=== PATIENT | female | born 1960 | race Caucasian/White ===

== ENCOUNTER 2018-10-29 19:44 | Emergency (ER) | payer OTHER ==
[2018-10-29] MEDS ORDERED: FENTANYL CITRATE INJ/PF 100 MCG/2 ML AMPUL IV ONE (20:20)
[2018-10-29] MEDS ORDERED: ONDANSETRON HCL INJ/PF 4 MG/2 ML SDV IV ONE (20:20)
[2018-10-29 20:33] LABS: ABSOLUTE EOSINOPHILS # (AUTO) 0.2 10^3/uL (0.0-0.6); ABSOLUTE LYMPHOCYTES (AUTO) 2.7 10^3/uL (0.5-4.7); ABSOLUTE MONOCYTES (AUTO) 0.8 10^3/uL (0.1-1.4); ABSOLUTE NEUT (AUTO) 3.5 10^3/uL (1.7-8.2); BASOPHILS % (AUTO) 0.2 % (0-2); EOSINOPHILS % (AUTO) 2.3 % (0-6); HEMATOCRIT 41.8 % (36.0-47.0); HEMOGLOBIN 13.8 g/dL (12.0-15.5); LYMPHOCYTES % (AUTO) 37.4 % (13-45); MEAN CORPUSCULAR HEMOGLOBIN 26.1 pg (27.0-33.4); MEAN CORPUSCULAR VOLUME 79 fl (80-97); PLATELET COUNT 185 10^3/uL (150-450); RED BLOOD COUNT 5.28 10^6/uL (3.72-5.28); RED CELL DISTRIBUTION WIDTH 13.7 % (11.5-14.0); SEGMENTED NEUTROPHILS % (AUTO) 49.1 % (42-78); TOTAL CELLS COUNTED % (AUTO) 100 %; WHITE BLOOD COUNT 7.2 10^3/uL (4.0-10.5)
[2018-10-29 20:57] LABS: ALANINE AMINOTRANSFERASE 24 U/L (9-52); ALBUMIN 3.8 g/dL (3.5-5.0); ALKALINE PHOSPHATASE 128 U/L (38-126); ANION GAP 10 (5-19); ASPARTATE AMINO TRANSFERASE 18 U/L (14-36); BILIRUBIN,DIRECT 0.2 mg/dL (0.0-0.4); BILIRUBIN,TOTAL 0.4 mg/dL (0.2-1.3); BLOOD UREA NITROGEN 18 mg/dL (7-20); CALCIUM 9.4 mg/dL (8.4-10.2); CARBON DIOXIDE 30 mmol/L (22-30); CHLORIDE 102 mmol/L (98-107); GLUCOSE 122 mg/dL (75-110); POTASSIUM 3.4 mmol/L (3.6-5.0); SODIUM 142.2 mmol/L (137-145); TOTAL PROTEIN 6.4 g/dL (6.3-8.2)
[2018-10-29] MEDS ORDERED: LIDOCAINE 5% (700 MG) TRANSDERMAL ADH..PATCH TP ONE (21:01)
--- NOTE | 2018-10-29 21:03 | ER Document Report ---
ED General - General Chief Complaint: Shortness Of Breath Stated Complaint: COUGH Time Seen by Provider: 10/29/18 20:05 Primary Care Provider: HOLLIE ENRIQUEZ FNP-C [Primary Care Provider] - Follow up as needed Notes: Patient is a 57-year-old female that presents to the emergency department for chief complaint of cough and shortness of breath and back pain. Patient states that she is been treated for pneumonia, and recently just finished antibiotics, but she has been coughing still, she states she was coughing so hard earlier today that she felt a sensation in her right back, she described as a sharp stabbing pain, that is now constant she currently rates the pain as a 6 out of 10 and is uncomfortable to lie on that side as well. She thought it felt like when she had a pneumothorax in the past. She states is painful to breathe as well. She has been coughing up some phlegm, that was yellow in color. She denies any recent fever, nausea, vomiting, abdominal pain, dysuria hematuria. No other complaints at this time. Past Medical History: Hypertension Past Surgical History: Mammoplasty, appendectomy Social History: Denies tobacco, alcohol or drug use. Family History: Reviewed and noncontributory for presenting illness Allergies: Reviewed, see documented allergy list. REVIEW OF SYSTEMS: Other than noted above, the 12 point review of systems was reviewed with the patient and were negative, all pertinent findings are included in the HPI. PHYSICAL EXAMINATION: Vital signs reviewed, nursing noted reviewed. GENERAL: Patient appears uncomfortable on exam, but in no immediate distress HEAD: Atraumatic, normocephalic. EYES: Eyes appear normal, extraocular movements intact, sclera anicteric, conjunctiva are normal. ENT: nares patent, oropharynx clear without exudates. Moist mucous membranes. NECK: Normal range of motion, supple without lymphadenopathy LUNGS: Breath sounds clear to auscultation bilaterally and equal. No wheezes rales or rhonchi. HEART: Regular rate and rhythm without murmurs Back: Reproducible rib tenderness along the posterior lateral aspect of the right ribs, and between the ribs, around ribs 8 through 10, no midline tenderness to the thoracic or lumbar spine. ABDOMEN: Soft, obese, nontender, normoactive bowel sounds. No rebound, guarding, or rigidity. No masses appreciated. EXTREMITIES: Nontender, good range of motion, no pitting or edema. NEUROLOGICAL: No focal neurological deficits. Moves all extremities spontaneously Motor and sensory grossly intact on exam. PSYCH: Normal mood, normal affect. SKIN: Warm, Dry, normal turgor, no rashes or lesions noted on exposed skin TRAVEL OUTSIDE OF THE [place] IN LAST 30 DAYS: No - Related Data Allergies/Adverse Reactions: latex [Latex] Allergy (Unknown, Verified 06/19/13 09:49) Past Medical History - Social History Smoking Status: Never Smoker Family History: Hypertension - Past Medical History Cardiac Medical History: Reports: Hx Hypertension Pulmonary Medical History: Reports: Hx Bronchitis - With reactive airways disease Denies: Hx Tuberculosis Neurological Medical History: Reports: Hx Seizures - as a child, last seizure was at age [age] years old GI Medical History: Reports: Hx Gastroesophageal Reflux Disease Past Surgical History: Reports: Hx Appendectomy, Hx Breast Surgery - BREAST REDUCTION, Hx Tonsillectomy. Denies: Hx Pacemaker - Immunizations Hx Diphtheria, Pertussis, Tetanus Vaccination: Yes Hx Pneumococcal Vaccination: 06/08/12 Physical Exam - Vital signs Vitals: Pulse Ox 100 10/29/18 20:08 Course - Re-evaluation Re-evalutation: Patient seen and examined vital signs reviewed. Laboratory data and/or imaging were ordered as appropriate for the patient's presenting symptoms and complaint, with consideration of any critical or life threatening conditions that may be associated with their obtained history and exam as noted above. Patient was treated with IV fentanyl, and Zofran, and was placed on the Lidoderm patch Results were reviewed when available and demonstrated negative chest x-ray, patient's lungs are clear my exam as well, very low suspicion for pneumothorax, her pulse ox was normal as well, suspect musculoskeletal strain from excessive coughing, blood work was unremarkable, negative troponin, negative EKG for concerning signs for ischemia. The patient was re-evaluated and was stable and improved Evaluation was most consistent with cough, musculoskeletal pain Results were discussed with the patient at this point, after careful consideration I feel that that patient can be discharged from the emergency department, the patient was educated treatments and reasons to return to the emergency department based on their presumed diagnosis as noted above, they were advised to followup with a primary care physician in 2-3 days. Patient was agreeable to plan of care. *Note is created using voice recognition software and may contain spelling, syntax or grammatical errors. Laboratory 10/29/18 10/29/18 10/29/18 20:15 20:15 20:15 WBC 7.2 RBC 5.28 Hgb 13.8 Hct 41.8 MCV 79 L MCH 26.1 L MCHC 33.0 RDW 13.7 Plt Count 185 Seg Neutrophils % 49.1 Lymphocytes % 37.4 Monocytes % 11.0 Eosinophils % 2.3 Basophils % 0.2 Absolute Neutrophils 3.5 Absolute Lymphocytes 2.7 Absolute Monocytes 0.8 Absolute Eosinophils 0.2 Absolute Basophils 0.0 Sodium 142.2 Potassium 3.4 L Chloride 102 Carbon Dioxide 30 Anion Gap 10 BUN 18 Creatinine 0.92 Est GFR ( Amer) > 60 Est GFR (Non-Af Amer) > 60 Glucose 122 H Calcium 9.4 Total Bilirubin 0.4 Direct Bilirubin 0.2 Neonat Total Bilirubin Not Reportable Neonat Direct Bilirubin Not Reportable Neonat Indirect Bili Not Reportable AST 18 ALT 24 Alkaline Phosphatase 128 H Troponin I < 0.012 Total Protein 6.4 Albumin 3.8 Chest X-Ray 10/29/18 00:00 IMPRESSION: 1. No acute pulmonary infiltrates 2. Slightly prominent right hilum, suggesting adenopathy. - Vital Signs Vital signs: Temp Pulse Resp BP Pulse Ox 99.7 F 18 166/74 H 93 10/29/18 20:57 10/29/18 21:02 10/29/18 21:02 10/29/18 21:02 - Laboratory Result Diagrams: 10/29/18 20:15 10/29/18 20:15 Laboratory results interpreted by me: 10/29/18 10/29/18 20:15 20:15 MCV 79 L MCH 26.1 L Potassium 3.4 L Glucose 122 H Alkaline Phosphatase 128 H - EKG Interpretation by Me Additional EKG results interpreted by me: EKG demonstrates sinus rhythm with a ventricular rate of 72 bpm, normal axis, QTC 473 ms, no evidence of acute ischemia in this EKG, this is compared with a prior EKG from 08/24/2012, without significant change. Discharge - Discharge Clinical Impression: Cough, Rib pain on right side Condition: Stable Disposition: HOME, SELF-CARE Instructions: Muscle Strain ([facility]) Additional Instructions: Please take the prescribed anti-inflammatory medication, this can be taken if you are driving, and is safe, additionally if you are not previously prescribed Mucinex, you can take that twice daily to help thin out the secretions that you have been coughing up. Lidoderm patches have been provided as well as a prescription, these are left on for 12 hours and then remove for 12 hours. Please follow-up with your primary care physician otherwise. Prescriptions: Guaifenesin [Mucinex] 1,200 mg PO BID #20 tab.er.12h Lidocaine [Lidoderm 5% (700 mg) Transdermal Patch] 1 patch TP DAILY #5 adh..patch Naproxen [Naprosyn] 500 mg PO BID PRN #30 tablet PRN Reason: back pain Referrals: HOLLIE ENRIQUEZ, CORPORATE SCHEDULER-C [Primary Care Provider] - Follow up in 3-5 days
--- NOTE | 2018-10-29 21:11 | RADIOLOGY REPORT (SQ) ---
EXAM DESCRIPTION: [facility]: XR CHEST 1 VIEW CLINICAL HISTORY: 57 years Female, SOB COMPARISON: 08/24/2012 FINDINGS: Lungs are clear, with no focal infiltrate, pneumothorax, or pleural effusion. Heart size is normal for positioning. Right hilum is slightly prominent, suggesting adenopathy. Bony structures are unremarkable. IMPRESSION: 1. No acute pulmonary infiltrates 2. Slightly prominent right hilum, suggesting adenopathy.
[2018-10-29] MEDS ORDERED: POTASSIUM CHLORIDE 10 MEQ CAPSULE.ER PO ONE (21:27)
[2018-10-29] MEDS ORDERED: KETOROLAC TROMETHAMINE INJ/PF 30 MG/1 ML SDV IV ONE (21:35)
[2018-10-29 22:06] VITALS: BP 180/90
--- NOTE | 2018-10-30 19:27 | EKG REPORT ---
SEVERITY:- NORMAL ECG - SINUS RHYTHM : Confirmed by: Rosemary Ivory MD 30-Oct-2018 19:26:33
== END 2018-10-29 22:27 | disposition home or self-care (01) ==
LOC: ER 19:44
DX: R07.81 Pleurodynia (principal); R05 Cough; M54.9 Dorsalgia, unspecified; R06.02 Shortness of breath; I10 Essential (primary) hypertension
CPT/HCPCS: 93005; 99284; 96374; 96375; 36415; 85025; 80053; 84484; 71045; 93010; J3010; J1885; J2405

== ENCOUNTER 2019-02-02 08:33 | Emergency (ER) | payer OTHER ==
[2019-02-02] MEDS ORDERED: AZITHROMYCIN 250 MG TABLET PO ONE (09:23)
[2019-02-02] MEDS ORDERED: BENZONATATE 100 MG CAPSULE PO ONE (09:23)
[2019-02-02 10:01] VITALS: BP 200/105
--- NOTE | 2019-02-02 15:10 | ER Document Report ---
Entered by EMMANUEL PLASENCIA SCRIBE 02/02/19 0923 Acting as scribe for:EVANGELINA SILVA MD ED Respiratory Problem - General Chief Complaint: Breathing Difficulty Stated Complaint: COUGH Time Seen by Provider: 02/02/19 08:58 Primary Care Provider: HOLLIE ENRIQUEZ FNP-C [Primary Care Provider] - Follow up as needed Mode of Arrival: Ambulatory Information source: Patient Notes: Patient is a 58-year-old female that presents to the emergency department today with complaints of shortness of breath, cough, and right lateral rib pain for the last week and a half. Patient states her "ribs hurt in the same spot they always do when she gets a cough". Patient states her sputum was clear but transitioned to a yellow color yesterday. TRAVEL OUTSIDE OF THE [place] IN LAST 30 DAYS: No - Related Data Allergies/Adverse Reactions: latex [Latex] Allergy (Unknown, Verified 02/02/19 08:34) Past Medical History - General Information source: Patient - Social History Smoking Status: Never Smoker Cigarette use (# per day): No Frequency of alcohol use: None Drug Abuse: None Family History: Hypertension Patient has suicidal ideation: No Patient has homicidal ideation: No - Past Medical History Cardiac Medical History: Reports: Hx Hypertension Pulmonary Medical History: Reports: Hx Bronchitis - With reactive airways disease Neurological Medical History: Reports: Hx Seizures - as a child, last seizure was at age [age] years old GI Medical History: Reports: Hx Gastroesophageal Reflux Disease Past Surgical History: Reports: Hx Appendectomy, Hx Breast Surgery - BREAST REDUCTION, Hx Tonsillectomy - Immunizations Hx Diphtheria, Pertussis, Tetanus Vaccination: Yes Hx Pneumococcal Vaccination: 06/08/12 Review of Systems - Review of Systems Constitutional: No symptoms reported EENT: No symptoms reported Cardiovascular: See HPI, Other - right lateral chest wall pain Respiratory: See HPI, Cough, Short of breath Gastrointestinal: No symptoms reported Genitourinary: No symptoms reported Female Genitourinary: No symptoms reported Musculoskeletal: No symptoms reported Skin: No symptoms reported Hematologic/Lymphatic: No symptoms reported Neurological/Psychological: No symptoms reported -: Yes All other systems reviewed and negative Physical Exam - Vital signs Vitals: Temp Pulse Resp BP Pulse Ox 97.6 F 67 24 H 224/94 H 93 02/02/19 08:40 02/02/19 08:40 02/02/19 08:40 02/02/19 08:40 02/02/19 08:40 - Notes Notes: Physical Exam: General: Alert, morbidly obese. HEENT: Normocephalic. Atraumatic. PERRL. Extraocular movements intact. Oropharynx clear. No posterior oropharynx erythema or exudate. Neck: Supple. Non-tender. Respiratory: No respiratory distress. Coarse breath sounds bilaterally with forced bronchitic cough. Right lateral chest wall tenderness with palpation. Cardiovascular: Regular rate and rhythm. Abdominal: Normal Inspection. Non-tender. No distension. Normal Bowel Sounds. Back: No gross abnormalities. Extremities: Moves all four extremities. Upper extremities: Normal inspection. Normal ROM. Lower extremities: Normal inspection. No edema. Normal ROM. Neurological: Normal cognition. AAOx4. Normal speech. Psychological: Normal affect. Normal Mood. Skin: Warm. Dry. Normal color. Course - Vital Signs Vital signs: Temp Pulse Resp BP Pulse Ox 97.6 F 66 18 200/105 H 95 02/02/19 08:40 02/02/19 10:00 02/02/19 10:00 02/02/19 10:00 02/02/19 10:00 Discharge - Discharge Clinical Impression: Bronchitis High blood pressure Qualifiers: Hypertension type: essential hypertension Qualified Code(s): I10 - Essential (primary) hypertension Condition: Stable Disposition: HOME, SELF-CARE Additional Instructions: Bronchitis You have acute bronchitis. This disease is an infection or inflammation of the air passageways in your lungs. Symptoms usually include cough, low grade fever, shortness of breath, and wheezing. The cough usually persists for a couple of weeks. Most cases of bronchitis get better without antibiotics. We prescribe antibiotics when we believe bacteria are damaging your airways, or if there's high risk the bronchitis will worsen into pneumonia. Increase your fluid intake. A cool mist humidifier may make your lungs more comfortable. An expectorant (cough medicine that loosens phlegm) can help. If you smoke, STOP!!! Recovery from bronchitis can be somewhat slow, but you should see improvement within a day or two. Repeated episodes of bronchitis may result in lung damage -- for example, chronic bronchitis, recurrent pneumonias, or emphysema. Call the doctor if you develop increasing fever, shortness of breath, chest pain, bloody sputum, or otherwise worsen. If you have not improved at all after several days, contact the physician. Your blood pressure was elevated today. Be sure you do not miss any of your pressure medications. Take the medication as prescribed--start the Zithromax tomorrow, you had today's dose here in the emergency room. Take Delsym DM or the generic version for additional cough control. Take Tylenol and ibuprofen or Aleve for your rib pain. Drink plenty of fluids and get plenty of rest. Follow-up with a local primary care provider if not improving, or if your blood pressure continues to run high. RETURN TO THE EMERGENCY ROOM IF ANY NEW OR WORSENING SYMPTOMS. Prescriptions: Benzonatate [Tessalon Perles 100 mg Capsule] 100 mg PO ASDIR PRN #30 capsule PRN Reason: Azithromycin [Zithromax 250 mg Tablet] 250 mg PO DAILY #4 tablet Referrals: HOLLIE ENRIQUEZ FNP-C [Primary Care Provider] - Follow up as needed Scribe Attestation: 02/02/19 09:28 I personally performed the services described in the documentation, reviewed and edited the documentation which was dictated to the scribe in my presence, and it accurately records my words and actions. I personally performed the services described in the documentation, reviewed and edited the documentation which was dictated to the scribe in my presence, and it accurately records my words and actions.
== END 2019-02-02 10:01 | disposition home or self-care (01) ==
LOC: ER 08:33
DX: J40 Bronchitis, not specified as acute or chronic (principal); I10 Essential (primary) hypertension; R07.89 Other chest pain; Z91.040 Latex allergy status
CPT/HCPCS: 99284

== ENCOUNTER → 2019-02-18 | Outpatient (CLI) | payer OTHER ==
--- NOTE | 2019-02-18 18:00 | XCELERA REPORT ---
[address] [address] Transthoracic Echocardiogram Report Name: PARKER IZAGUIRRE Age: 58 yrs Gender: Female : 1960 Patient Status: Outpatient Patient Location: RAD Study Date: 02/18/2019 08:10 AM Height: 61 in Weight: 267 lb BSA: 2.1 m2 Reason For Study: DYSPENA Ordering Physician: DANIKA KNOX Performed By: Candis Tyler Interpretation Summary Very poor study , difficult due to pt 267# and 61". No good apical views for biplane LVEF calculation, and insufficient endocardial definition of apical view s to assess regional wall motion abnormality. No IVC, and no RA/RV dimensions measured. Pt's dyspnea likely at least due to mod/severe pulm hypertension RVSP > 67mm Hg. with visual RA and RV enlargement. LVEF visually normal >65%, although no Biplane LVEF calculated. due to no decent apical views and no contrast used. AV peak velocity is min elevated 1.9m/sec. may be mild , but no AR. MMode/2D Measurements & Calculations IVSd: 1.0 cm LVIDd: 4.6 cm FS: 45.6 % Ao root diam: 2.9 cm LVIDs: 2.5 cm EDV(Teich): 96.2 ml LVPWd: 1.1 cm ESV(Teich): 22.1 ml Ao root area: 6.7 cm2 LA dimension: 4.2 cm EF(Teich): 77.1 % Doppler Measurements & Calculations MV E max ladan: MV P1/2t max ladan: Ao V2 max: LV V1 max P.3 cm/sec 98.1 cm/sec 188.9 cm/sec 3.7 mmHg MV A max ladan: MV P1/2t: 53.9 msec Ao max PG: LV V1 max: 69.7 cm/sec MVA(P1/2t): 4.1 cm2 14.3 mmHg 96.0 cm/sec MV E/A: 1.4 MV dec slope: 532.7 cm/sec2 MV dec time: 0.18 sec TV V2 max: PA V2 max: MV P1/2t-pr_phl: 382.8 cm/sec 124.0 cm/sec 53.9 msec TV max PG: PA max P.2 mmHg 58.6 mmHg Left Ventricle The left ventricle is normal in size. There is mild concentric left ventricular hypertrophy. The left ventricular ejection fraction is within normal limits. LV diastolic function not assessed. Not all wall segments were well visualized. see the pictorals for individual segments visualised and assessed. Right Ventricle The right ventricle is mildly dilated. The right ventricular systolic function is normal. Atria The right atrium is dilated. The left atrial size is normal. Interarterial septum not well visualized and not well dopplered. Cannot comment on ASD/PFO presence. Mitral Valve There is mild mitral annular calcification. There is no evidence of mitral valve prolapse. There is no mitral valve stenosis. There is no mitral regurgitation noted. Aortic Valve The aortic valve is not well visualized secondary to technical limitations. The aortic valve is trileaflet. The aortic valve opens well. The aortic valve is sclerotic and shows some degree of functional abnormality. Cannot exclude aortic valvular vegetation. There is a peak gradient of 14 mm of Hg. No aortic regurgitation is present. Tricuspid Valve The tricuspid valve is not well visualized secondary to technical limitations. There is a mild amount of tricuspid regurgitation. Best estimated RVSP is approximately 67 mm/Hg. Pulmonic Valve The pulmonic valve is not well visualized. Great Vessels The inferior vena cava was not visualized. Effusions Minimal pericardial effusion. I WMSI = 1.00 % Normal = 100 Segments Size X - Cannot 2 - 4 - 1-2 small Interpret 1 - Normal Hypokinetic 3 - AkineticDyskinetic 3-5 moderate 5 - 6-14 large Aneurysmal 15-16 diffuse : DANIKA KNOX, [place]
== END ==
LOC: RAD 07:57
PROVIDERS: ATTEND Physician Assistant
DX: R06.09 Other forms of dyspnea (principal)
CPT/HCPCS: 93306

== ENCOUNTER → 2019-05-04 | Outpatient (CLI) | payer OTHER ==
[2019-05-04 09:21] LABS: HEMATOCRIT 43.3 % (36.0-47.0); HEMOGLOBIN 14.5 g/dL (12.0-15.5); MEAN CORPUSCULAR HEMOGLOBIN 26.9 pg (27.0-33.4); MEAN CORPUSCULAR HGB CONC 33.5 g/dL (32.0-36.0); MEAN CORPUSCULAR VOLUME 80 fl (80-97); PLATELET COUNT 166 10^3/uL (150-450); RED BLOOD COUNT 5.39 10^6/uL (3.72-5.28); WHITE BLOOD COUNT 6.4 10^3/uL (4.0-10.5)
[2019-05-04 10:06] LABS: ALBUMIN 3.7 g/dL (3.5-5.0); ALKALINE PHOSPHATASE 128 U/L (38-126); ANION GAP 7 (5-19); ASPARTATE AMINO TRANSFERASE 18 U/L (14-36); BILIRUBIN,DIRECT 0.2 mg/dL (0.0-0.4); BILIRUBIN,TOTAL 0.8 mg/dL (0.2-1.3); BLOOD UREA NITROGEN 18 mg/dL (7-20); CALCIUM 9.4 mg/dL (8.4-10.2); CARBON DIOXIDE 31 mmol/L (22-30); CHLORIDE 104 mmol/L (98-107); CHOLESTEROL 173.21 mg/dL (0-200); GLUCOSE 103 mg/dL (75-110); POTASSIUM 3.8 mmol/L (3.6-5.0); TOTAL PROTEIN 6.5 g/dL (6.3-8.2); TRIGLYCERIDES 88 mg/dL (<150)
[2019-05-04 10:16] LABS: DIRECT LDL 108 mg/dL (<100)
[2019-05-05 14:37] LABS: THYROID PEROXIDASE (TPO) AB 323 IU/mL (0-34)
[2019-05-05 15:42] LABS: THYROGLOBULIN AB <1.0 IU/mL (0.0-0.9)
== END ==
LOC: OD 08:12
PROVIDERS: ATTEND Physician Assistant
DX: E05.90 Thyrotoxicosis, unspecified without thyrotoxic crisis or storm (principal); E06.9 Thyroiditis, unspecified; I10 Essential (primary) hypertension; R06.00 Dyspnea, unspecified
CPT/HCPCS: 36415; 80048; 80061; 80076; 83519; 83735; 83880; 84443; 85027; 86376; 86800

== ENCOUNTER → 2019-06-04 | Outpatient (CLI) | payer OTHER ==
[2019-06-04 12:58] LABS: ANION GAP 8 (5-19); BLOOD UREA NITROGEN 19 mg/dL (7-20); CALCIUM 8.7 mg/dL (8.4-10.2); CARBON DIOXIDE 31 mmol/L (22-30); CHLORIDE 101 mmol/L (98-107); GLUCOSE 101 mg/dL (75-110); POTASSIUM 3.9 mmol/L (3.6-5.0)
== END ==
LOC: OD 11:40
PROVIDERS: ATTEND Internal Medicine Cardiovascular Disease
DX: I10 Essential (primary) hypertension (principal); R06.00 Dyspnea, unspecified
CPT/HCPCS: 36415; 80048

== ENCOUNTER → 2019-07-14 | Outpatient (CLI) | payer OTHER ==
[2019-07-14 10:10] LABS: ABSOLUTE EOSINOPHILS # (AUTO) 0.1 10^3/uL (0.0-0.6); ABSOLUTE MONOCYTES (AUTO) 0.6 10^3/uL (0.1-1.4); ABSOLUTE NEUT (AUTO) 4.2 10^3/uL (1.7-8.2); BASOPHILS % (AUTO) 0.2 % (0-2); EOSINOPHILS % (AUTO) 1.6 % (0-6); HEMATOCRIT 42.7 % (36.0-47.0); HEMOGLOBIN 14.7 g/dL (12.0-15.5); LYMPHOCYTES % (AUTO) 29.4 % (13-45); MEAN CORPUSCULAR HEMOGLOBIN 28.3 pg (27.0-33.4); MEAN CORPUSCULAR HGB CONC 34.5 g/dL (32.0-36.0); MEAN CORPUSCULAR VOLUME 82 fl (80-97); MONOCYTES % (AUTO) 8.1 % (3-13); PLATELET COUNT 185 10^3/uL (150-450); RED CELL DISTRIBUTION WIDTH 13.6 % (11.5-14.0); SEGMENTED NEUTROPHILS % (AUTO) 60.7 % (42-78); TOTAL CELLS COUNTED % (AUTO) 100 %
[2019-07-14 10:30] LABS: ALKALINE PHOSPHATASE 137 U/L (38-126); ASPARTATE AMINO TRANSFERASE 21 U/L (14-36); BILIRUBIN,TOTAL 0.5 mg/dL (0.2-1.3); TOTAL PROTEIN 6.8 g/dL (6.3-8.2)
[2019-07-14 10:43] LABS: FREE T3 4.91 pg/mL (2.77-5.27); FREE T4 (FREE THYROXINE) 2.32 ng/dL (0.78-2.19)
[2019-07-14 11:04] LABS: THYROID STIMULATING HORMONE < 0.01 uIU/mL (0.47-4.68)
== END ==
LOC: OD 09:23
PROVIDERS: ATTEND Internal Medicine Endocrinology, Diabetes & Metabolism
DX: E05.90 Thyrotoxicosis, unspecified without thyrotoxic crisis or storm (principal)
CPT/HCPCS: 36415; 80076; 84439; 84443; 84481; 85025

== ENCOUNTER → 2019-08-28 | Outpatient (CLI) | payer OTHER ==
--- NOTE | 2019-08-28 09:29 | ER RDC ASSESSMENT REPORT ---
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 - Symptoms Subjective Fever([place] feverish): Yes Chills: Yes Muscule Aches: Yes Runny Nose: Yes Sore Throat: Yes Cough (New or worsening chronic cough): Yes Shortness of breath: Yes Nausea or Vomiting: No Headache: Yes Abdominal Pain: No Diarrhea(3 or more loose stools in last 24 hours): No - Do you have any of the following Chronic lung disease: Asthma or emphysema or COPD: No Cystic Fibrosis: No Diabetes: Yes High Blood Pressure: Yes Cardiovascular Disease: Yes Chronic Kidney Disease: No Chronic Liver Disease: No Chronic blood disorder like Sickle Cell Disease: No Weak immune system due to disease or medication: No Neurologic condition that limits movement: No Developmental delay - Moderate to Severe: No Recent (within past 2 weeks) or current : No Other Comment: Patient reports history of Graves' disease. - Objective Temperature: 98.1 F Pulse Rate: 73 Respiratory Rate: 20 Blood Pressure: 140/84 O2 Sat by Pulse Oximetry: 94 Objective: Patient presents for COVID testing. General - General Stated Complaint: Patient reports for COVID testing reports upper respiratory symptoms for 5 days Mode of Arrival: Ambulatory Information source: Patient - HPI Patient complains to provider of: Upper respiratory symptoms Onset: Other - 5 days - Related Data Allergies/Adverse Reactions: latex [Latex] Allergy (Unknown, Verified 02/02/19 08:34) Past Medical History - Social History Smoking Status: Never Smoker Family History: Hypertension - Past Medical History Cardiac Medical History: Reports: Hx Hypertension Pulmonary Medical History: Reports: Hx Bronchitis - With reactive airways disease Denies: Hx Tuberculosis Neurological Medical History: Reports: Hx Seizures - as a child, last seizure was at age [age] years old Renal/ Medical History: Denies: Hx Peritoneal Dialysis GI Medical History: Reports: Hx Gastroesophageal Reflux Disease Past Surgical History: Reports: Hx Appendectomy, Hx Breast Surgery - BREAST REDUCTION, Hx Tonsillectomy. Denies: Hx Pacemaker Physical Exam - General General appearance: Appears well, Alert In distress: Mild Notes: PHYSICAL EXAMINATION: GENERAL: Well-appearing and in no acute distress. HEAD: Atraumatic, normocephalic. EYES: sclera anicteric, conjunctiva are normal. ENT: nares patent. Moist mucous membranes. NECK: Normal range of motion, supple without lymphadenopathy LUNGS: CTAB and equal. No wheezes rales or rhonchi. HEART: Regular rate and rhythm without murmurs NEUROLOGICAL: Normal speech. PSYCH: Normal mood, normal affect. SKIN: Warm, Dry, normal turgor, no obvious rashes or lesions noted Diagnostic Results Laboratory Results: Patient has been notified of NEGATIVE results for rapid flu and strep. Patient notified results are PENDING for strep culture and COVID testing. Patient Education/Counseling Counseling/Education: Patient presents with upper respiratory symptoms worrisome for possible Covid 19. Patient does not have emergency worring symptoms such as difficulty breathing, shortness of breath, chest pain, pressure, confusion or cyanosis. Patient appears suitable for discharge. Patient's vital signs are stable and patient is nontoxic in appearance. Good return precautions have been discussed with patient, patient verbalized understanding and is agreeable with discharge plan of care at this time. Patient provided COVID discharge instructions including: As a person under investigation for Covid 19, the [place] department of Health and Human Services, division of public health advises you to adhere to the following guidance until your test results are reported to you. If your test result is positive, you will receive additional information from your provider and your local health department at that time. Remain at home until you are cleared by the health provider or public health authorities. Keep a log of visitors to your home, notify any visitors to your home of your i solation status. If you plan to move to a new address or leave the [facility], notify the local health department in your County. Call your doctor or seek care if you have an urgent medical need. Before seeking medical care, call ahead to get instructions from the provider before arriving at the medical office clinic or hospital. Notify them that you are being tested for the virus that causes Covid 19 so that arrangements can be made, as necessary, to prevent transmission to others in the healthcare setting. Next, notify the local health department in your county. If a medical emergency arises and you need to call 911, inform the first responders that you are being tested for the virus that causes Covid 19. Next, notify the local health department in your county. Guidance for worsening S/SX: Patiend advised for worsening symptoms to contact her Primary Care Provider. If symptoms become life threatening, call 911 immediately and advise dispatch she is a person under investigation for COVID 19, and go to the Emergency Department. RDC Discharge - Discharge Condition: Stable Disposition: Home; Selfcare
[2019-08-28 09:35] VITALS: BP 140/84
[2019-08-28 10:18] LABS: A TYPE INFLUENZA AG NEGATIVE (NEGATIVE); B INFLUENZA AG NEGATIVE (NEGATIVE)
== END ==
LOC: RDC 08:36
PROVIDERS: ATTEND Nurse Practitioner Family
DX: Z20.828 Contact with and (suspected) exposure to other viral communicable diseases (principal)
CPT/HCPCS: 36415; 87070; 87635; 87804; 87880

== ENCOUNTER 2019-08-29 12:06 | Emergency (ER) | payer OTHER ==
--- NOTE | 2019-08-29 13:06 | ER Document Report ---
ED General - General Chief Complaint: Shortness Of Breath Stated Complaint: DIFFICULTY BREATHING Time Seen by Provider: 08/29/19 12:23 Primary Care Provider: [facility] [Provider Group] - Follow up as needed Mode of Arrival: Ambulatory Information source: Patient Notes: Patient presents complaining of cough for the past week. Patient states that over the past few days whenever she will cough she has right upper quadrant abdominal pain. Patient denies any fever, nausea or vomiting. Patient denies any urinary symptoms. Patient does report recent known exposure to a covid 19 patient that occurred 2 weeks ago. Patient was seen at the offsite testing center and had negative flu and rapid strep test and has already had testing for covid 19. TRAVEL OUTSIDE OF THE [place] IN LAST 30 DAYS: No - HPI Onset: Last week Onset/Duration: Persistent, Worse Quality of pain: Achy Pain Level: 4 Associated symptoms: Nonproductive cough, Hoarseness. denies: Chest pain, Chills, Fever, Nausea, Vomiting Exacerbated by: Coughing, Deep breathing Relieved by: Remaining still Similar symptoms previously: No Recently seen / treated by doctor: Yes - Related Data Allergies/Adverse Reactions: latex [Latex] Allergy (Unknown, Verified 02/02/19 08:34) Past Medical History - General Information source: Patient - Social History Smoking Status: Never Smoker Chew tobacco use (# tins/day): No Frequency of alcohol use: None Drug Abuse: None Occupation: [employer] Family History: Hypertension Patient has suicidal ideation: No Patient has homicidal ideation: No - Past Medical History Cardiac Medical History: Reports: Hx Hypertension Pulmonary Medical History: Reports: Hx Bronchitis - With reactive airways dis ease Denies: Hx Tuberculosis Neurological Medical History: Reports: Hx Seizures - as a child, last seizure was at age [age] years old Endocrine Medical History: Reports: Hx Graves' Disease Renal/ Medical History: Denies: Hx Peritoneal Dialysis GI Medical History: Reports: Hx Gastroesophageal Reflux Disease Past Surgical History: Reports: Hx Appendectomy, Hx Breast Surgery - BREAST REDUCTION, Hx Tonsillectomy. Denies: Hx Pacemaker - Immunizations Hx Diphtheria, Pertussis, Tetanus Vaccination: Yes Hx Pneumococcal Vaccination: 06/08/12 Review of Systems - Review of Systems Constitutional: No symptoms reported. denies: Fever EENT: Other - voice hoarseness. denies: Throat pain Cardiovascular: No symptoms reported. denies: Chest pain, Dizziness Respiratory: Cough, Hurts to breathe. denies: Sputum Gastrointestinal: Abdominal pain. denies: Vomiting Genitourinary: No symptoms reported. denies: Dysuria Female Genitourinary: No symptoms reported Musculoskeletal: No symptoms reported Skin: No symptoms reported Hematologic/Lymphatic: No symptoms reported Neurological/Psychological: No symptoms reported Physical Exam - Vital signs Vitals: Temp Pulse Resp BP Pulse Ox 99.2 F 63 18 142/67 H 93 08/29/19 15:48 08/29/19 15:48 08/29/19 15:48 08/29/19 15:48 08/29/19 15:48 - General General appearance: Appears well, Alert In distress: None - HEENT Head: Normocephalic, Atraumatic Eyes: Normal Conjunctiva: Normal Nasal: Normal Mouth/Lips: Normal Mucous membranes: Normal Pharynx: Erythema. No: Exudate, Retropharyngeal abscess Neck: Normal, Supple. No: Lymphadenopathy - Respiratory Respiratory status: No respiratory distress Chest status: Pain with cough Breath sounds: Nonproductive cough. No: Rales, Rhonchi, Stridor, Wheezing Chest palpation: Normal - Cardiovascular Rhythm: Regular Heart sounds: S1 appreciated, S2 appreciated - Abdominal Inspection: Morbidly Obese Distension: No distension Bowel sounds: Normal Tenderness: Tender - RUQ, Guarding Organomegaly: No organomegaly - Back Back: Normal, Nontender. No: CVA tenderness - Extremities General upper extremity: Normal inspection, Normal ROM General lower extremity: Normal inspection, Normal ROM - Neurological Neuro grossly intact: Yes Cognition: Normal Orientation: AAOx4 [place] Coma Scale Eye Opening: Spontaneous [place] Coma Scale Verbal: Oriented [place] Coma Scale Motor: Obeys Commands [place] Coma Scale Total: 15 - Psychological Associated symptoms: Normal affect, Normal mood - Skin Skin Temperature: Warm Skin Moisture: Dry Skin Color: Normal Course - Re-evaluation Re-evalutation: 08/29/19 15:34 Patient's x-ray reviewed, no concern for pneumothorax or pneumonia at this time. Patient with reproducible chest wall pain with coughing and movement of the upper torso. Patient is presently a PUI for covid and is advised to continue home quarantine as previously instructed. Patient encouraged to contact her primary doctor for recheck. Patient without any fever or leukocytosis. Patient appears stable for discharge at this time. - Vital Signs Vital signs: Temp Pulse Resp BP Pulse Ox 99.2 F 63 18 142/67 H 93 08/29/19 15:48 08/29/19 15:48 08/29/19 15:48 08/29/19 15:48 08/29/19 15:48 - Laboratory Result Diagrams: 08/29/19 14:10 08/29/19 14:56 Laboratory results interpreted by me: 08/29/19 08/29/19 14:10 14:56 Carbon Dioxide 33 H Alkaline Phosphatase 156 H Urine Blood SMALL H Labs- Entire Visit 08/29/19 08/29/19 08/29/19 14:10 14:10 14:10 WBC 10.5 RBC 5.27 Hgb 15.2 Hct 43.3 MCV 82 MCH 28.7 MCHC 35.0 RDW 14.0 Plt Count 208 Lymph % (Auto) 22.9 [place] % (Auto) 9.3 Eos % (Auto) 2.7 Baso % (Auto) 0.2 Absolute Neuts (auto) 6.8 Absolute Lymphs (auto) 2.4 Absolute Monos (auto) 1.0 Absolute Eos (auto) 0.3 Absolute Basos (auto) 0.0 Seg Neutrophils % 64.9 Sodium Cancelled Potassium Cancelled Chloride Cancelled Carbon Dioxide Cancelled Anion Gap Cancelled BUN Cancelled Creatinine Cancelled Est GFR ( Amer) Cancelled Est GFR (Non-Af Amer) Cancelled Est GFR (MDRD) Non-Af Cancelled Glucose Cancelled Calcium Cancelled Total Bilirubin Cancelled Direct Bilirubin Cancelled Neonat Total Bilirubin Cancelled Neonat Direct Bilirubin Cancelled Neonat Indirect Bili Cancelled AST Cancelled ALT Cancelled Alkaline Phosphatase Cancelled Total Protein Cancelled Albumin Cancelled Lipase Cancelled EGFR Cancelled Urine Color STRAW Urine Appearance CLEAR Urine pH 6.0 Ur Specific [place] 1.006 Urine Protein NEGATIVE Urine Glucose (UA) NEGATIVE Urine Ketones NEGATIVE Urine Blood SMALL H Urine Nitrite NEGATIVE Urine Bilirubin NEGATIVE Urine Urobilinogen NEGATIVE Ur Leukocyte Esterase NEGATIVE Urine RBC (Auto) 2 Squamous Epi Cells Auto 1 Urine Mucus (Auto) RARE Urine Ascorbic Acid NEGATIVE 08/29/19 14:56 WBC RBC Hgb Hct MCV MCH MCHC RDW Plt Count Lymph % (Auto) [place] % (Auto) Eos % (Auto) Baso % (Auto) Absolute Neuts (auto) Absolute Lymphs (auto) Absolute Monos (auto) Absolute Eos (auto) Absolute Basos (auto) Seg Neutrophils % Sodium 138.8 Potassium 3.7 Chloride 100 Carbon Dioxide 33 H Anion Gap 6 BUN 19 Creatinine 0.93 Est GFR ( Amer) > 60 Est GFR (Non-Af Amer) Est GFR (MDRD) Non-Af > 60 Glucose 101 Calcium 8.9 Total Bilirubin 0.5 Direct Bilirubin 0.0 Neonat Total Bilirubin Not Reportable Neonat Direct Bilirubin Not Reportable Neonat Indirect Bili Not Reportable AST 23 ALT 16 Alkaline Phosphatase 156 H Total Protein 6.8 Albumin 3.8 Lipase 33.2 EGFR Urine Color Urine Appearance Urine pH Ur Specific [place] Urine Protein Urine Glucose (UA) Urine Ketones Urine Blood Urine Nitrite Urine Bilirubin Urine Urobilinogen Ur Leukocyte Esterase Urine RBC (Auto) Squamous Epi Cells Auto Urine Mucus (Auto) Urine Ascorbic Acid - Diagnostic Test Radiology reviewed: Reports reviewed Discharge - Discharge Clinical Impression: Chest wall pain URI (upper respiratory infection) Qualifiers: URI type: unspecified URI Qualified Code(s): J06.9 - Acute upper respiratory infection, unspecified Condition: Stable Disposition: HOME, SELF-CARE Instructions: Chest Wall Pain ([facility]), Upper Respiratory Illness ([facility]) Additional Instructions: Return immediately for any new or worsening symptoms. Follow-up with your primary care provider, call today to make a follow-up appointment continue your home quarantine as previously directed Prescriptions: Cyclobenzaprine HCl 5 mg PO TID PRN #12 tablet PRN Reason: Benzonatate [Tessalon Perles 100 mg Capsule] 100 mg PO ASDIR PRN #30 capsule PRN Reason: Referrals: [facility] [Provider Group] - Follow up as needed
--- NOTE | 2019-08-29 14:01 | RADIOLOGY REPORT (SQ) ---
EXAM DESCRIPTION: CHEST SINGLE VIEW IMAGES COMPLETED DATE/TIME: 08/29/2019 1:43 pm REASON FOR STUDY: cough, RUQ pain COMPARISON: 2018 NUMBER OF VIEWS: One view. TECHNIQUE: Single frontal radiographic view of the chest acquired. LIMITATIONS: None. FINDINGS: LUNGS AND PLEURA: No opacities, masses or pneumothorax. No pleural effusion. MEDIASTINUM AND HILAR STRUCTURES: No masses. Contour normal. HEART AND VASCULAR STRUCTURES: Heart normal in size. Normal vasculature. BONES: No acute findings. HARDWARE: None in the chest. OTHER: No other significant finding. IMPRESSION: NO SIGNIFICANT RADIOGRAPHIC FINDING IN THE CHEST. TECHNICAL DOCUMENTATION: JOB ID: [id number] 2010 [employer]- All Rights Reserved Reading location - IP/workstation name: [email or web address]
--- NOTE | 2019-08-29 14:14 | RADIOLOGY REPORT (SQ) ---
EXAM DESCRIPTION: U/S ABDOMEN LIMITED W/O DOP IMAGES COMPLETED DATE/TIME: 08/29/2019 2:00 pm REASON FOR STUDY: RUQ pain COMPARISON: None. TECHNIQUE: Dynamic and static grayscale images acquired of the right upper quadrant and recorded on PACS. Additional selected color Doppler and spectral images recorded. LIMITATIONS: Study limited due to acoustical interference from fat or from air in the bowel. Study is further limited by patient cooperation issues. FINDINGS: PANCREAS: Visualized pancreas and duct normal. Parts of pancreas poorly seen secondary to acoustical interference from fat or from air in the bowel. LIVER: Echogenic, fatty. Normal size without gross mass. LIVER VASCULATURE: Normal directional flow of the main portal vein and hepatic veins. GALLBLADDER: No visualized stones but the gallbladder is poorly seen. Wall is measured by the techno logist at 3 mm, but again this may be inaccurate due to difficulty visualizing the gallbladder. ULTRASOUND-DETECTED LOOMIS'S SIGN: Patient has pain which may reflect Loomis's sign but differential includes muscle strain (Reported by patient). INTRAHEPATIC DUCTS AND COMMON DUCT: CBD and intrahepatic ducts normal caliber. No filling defects. INFERIOR VENA CAVA: Normal flow. AORTA: No aneurysm. RIGHT KIDNEY: Normal size. Normal echogenicity. No solid or suspicious masses. No hydronephrosis. No calcifications. PERITONEAL CAVITY AND RIGHT PLEURAL SPACE: No ascites or effusions. OTHER: No other significant finding. IMPRESSION: Poor evaluation of the gallbladder due to the factors described above. No large stones. TECHNICAL DOCUMENTATION: JOB ID: [id number] 2010 [employer]- All Rights Reserved Reading location - IP/workstation name: [email or web address]
[2019-08-29 14:30] LABS: ABSOLUTE EOSINOPHILS # (AUTO) 0.3 10^3/uL (0.0-0.6); ABSOLUTE LYMPHOCYTES (AUTO) 2.4 10^3/uL (0.5-4.7); ABSOLUTE NEUT (AUTO) 6.8 10^3/uL (1.7-8.2); BASOPHILS % (AUTO) 0.2 % (0-2); EOSINOPHILS % (AUTO) 2.7 % (0-6); HEMATOCRIT 43.3 % (36.0-47.0); HEMOGLOBIN 15.2 g/dL (12.0-15.5); LYMPHOCYTES % (AUTO) 22.9 % (13-45); MEAN CORPUSCULAR HEMOGLOBIN 28.7 pg (27.0-33.4); MEAN CORPUSCULAR VOLUME 82 fl (80-97); MONOCYTES % (AUTO) 9.3 % (3-13); PLATELET COUNT 208 10^3/uL (150-450); RED BLOOD COUNT 5.27 10^6/uL (3.72-5.28); SEGMENTED NEUTROPHILS % (AUTO) 64.9 % (42-78); TOTAL CELLS COUNTED % (AUTO) 100 %; WHITE BLOOD COUNT 10.5 10^3/uL (4.0-10.5)
[2019-08-29 14:55] LABS: APPEARANCE,URINE CLEAR; BILIRUBIN,URINE NEGATIVE (NEGATIVE); COLOR,URINE STRAW; GLUCOSE, URINE NEGATIVE (NEGATIVE); KETONES,URINE NEGATIVE (NEGATIVE); LEUKOCYTE ESTERASE,URINE NEGATIVE (NEGATIVE); NITRITE,URINE NEGATIVE (NEGATIVE); PROTEIN,URINE NEGATIVE (NEGATIVE); URINE SPECIFIC GRAVITY 1.006; UROBILINOGEN,URINE NEGATIVE mg/dL (<2.0)
[2019-08-29 15:27] LABS: ALBUMIN 3.8 g/dL (3.5-5.0); ALKALINE PHOSPHATASE 156 U/L (38-126); ANION GAP 6 (5-19); ASPARTATE AMINO TRANSFERASE 23 U/L (14-36); BILIRUBIN,TOTAL 0.5 mg/dL (0.2-1.3); BLOOD UREA NITROGEN 19 mg/dL (7-20); CALCIUM 8.9 mg/dL (8.4-10.2); CARBON DIOXIDE 33 mmol/L (22-30); CHLORIDE 100 mmol/L (98-107); GLUCOSE 101 mg/dL (75-110); POTASSIUM 3.7 mmol/L (3.6-5.0); TOTAL PROTEIN 6.8 g/dL (6.3-8.2)
[2019-08-29 15:49] VITALS: BP 142/67
== END 2019-08-29 16:05 | disposition home or self-care (01) ==
LOC: ER 12:06
DX: J06.9 Acute upper respiratory infection, unspecified (principal); R07.89 Other chest pain; R07.1 Chest pain on breathing; R05 Cough; R49.0 Dysphonia; R10.11 Right upper quadrant pain; R10.811 Right upper quadrant abdominal tenderness; I10 Essential (primary) hypertension; Z20.828 Contact with and (suspected) exposure to other viral communicable diseases; Z91.040 Latex allergy status
CPT/HCPCS: 36415; 71045; 76705; 80053; 81001; 83690; 85025; 99284